=== PATIENT | female | born 1965 | race Caucasian/White ===

== ENCOUNTER 2018-10-04 23:04 | Emergency (ER) | payer SELFPAY ==
[~2018-10-04] VITALS: Ht 162.6 cm; Wt 106.1 kg
[2018-10-04 23:23] VITALS: BP 138/57
--- NOTE | 2018-10-04 23:33 | NUR ---
PT TAKEN TO BED 2
[2018-10-04] MEDS ORDERED: methylPREDNISolone SS 125 MG/2 ML VIAL IM ONE (23:40)
[2018-10-04] MEDS ORDERED: diphenhydrAMINE 50 MG/ML VIAL IM ONE (23:40)
--- NOTE | 2018-10-04 23:40 | NUR ---
52/f cc: allergic reaction. ichiness since 1300. hives on bue, abd and back. pressure sensation x1 h + nausea. denies hx.
[2018-10-04 23:55] VITALS: BP 147/68
--- NOTE | 2018-10-04 23:55 | NUR ---
DISCHARGE PAPERS GIVEN TO PT. PT STATES ITCHING AND ANXIETY REDUCED. 0/10 PAIN WITH VSS. RX OF BEADRYL AND PREDNISONE GIVEN. SIDE EFFECTS EXPLAINED. INSTRUCTED TO F/U WITH PCP AND WHEN TO RETURN TO ER. PT VERBALLIZED UNDERSTANDING OF DC INSTRUCTIONS. ALL QEUSTIONS ANSWERED.
== END 2018-10-04 23:55 | disposition home or self-care (01) ==
LOC: MED 23:04
DX: L23.9 Allergic contact dermatitis, unspecified cause (principal)
CPT/HCPCS: 96372; 99283; J1200; J2930

== ENCOUNTER 2018-10-06 23:31 | Emergency (ER) | payer MEDICAID ==
[~2018-10-06] VITALS: Ht 162.6 cm; Wt 105.2 kg
[2018-10-06 23:39] VITALS: BP 130/90
--- NOTE | 2018-10-06 23:39 | NUR ---
TO BED # 06 AMBULATORY
--- NOTE | 2018-10-06 23:40 | NUR ---
52 Y/O FEMALE PRESENTS TO ED, C/O RASH ON SKIN. PT STATES RASH STARTED ON THURSDAY, PT TOOK PREDNISONE AND BANOPHEN BUT MEDICATIONS INEFFECTIVE. RASHES APPEAR ON BILATERAL ARMS AND CHEST. PT HAS NO SOB. PT HAS NO MEDICAL HX. PT VSS. DR HEWITT AWARE. WILL CONTINUE TO MONITOR.
[2018-10-07] MEDS ORDERED: NACL 0.9% 1,000 ML IV ONE (00:12)
[2018-10-07] MEDS ORDERED: methylPREDNISolone SS 125 MG in WATER STERILE 2 ML IV ONE (00:15)
[2018-10-07] MEDS ORDERED: EPINEPHrine 1:1000 - 1 MG/ML AMP SUBQ ONE (00:15)
[2018-10-07] MEDS ORDERED: FAMOTIDINE 20 MG/2 ML VIAL IVP ONE (00:15)
[2018-10-07] MEDS ORDERED: diphenhydrAMINE 50 MG/ML VIAL IVP ONE (00:15)
[2018-10-07] MEDS ORDERED: methylPREDNISolone SS 125 MG/2 ML VIAL ONE (00:33)
--- NOTE | 2018-10-07 01:45 | NUR ---
PT AWAKE, LAYING ON BED. NO RASHES ON BODY. PT VSS. DR HEWITT AWARE. WILL CONTINUE TO MONITOR.
[2018-10-07 02:01] VITALS: BP 126/73
--- NOTE | 2018-10-07 02:01 | NUR ---
PT DISCHARGED WITH PAPERWORK. RX PEPCIC, EDUCATED PT REGARDING MEDICATION AND SIDE EFFECTS. EDUCATED PT REGARDING DISCHARGE DIAGNOSIS. PT VERBALIZED UNDERSTANDING OF TEACHING. TOLD PT TO FOLLOW UP WITH PCP AND WHEN TO RETURN TO ED. PT VSS. NO VISIBLE RASH ON BODY. ANSWERED ALL QUESTIONS.
== END 2018-10-07 02:01 | disposition home or self-care (01) ==
LOC: MED 23:31
DX: L50.0 Allergic urticaria (principal); Z88.0 Allergy status to penicillin
CPT/HCPCS: 96372; 96374; 96375; 99283; J0171; J1200; J2930; J3490; J7030

== ENCOUNTER 2023-06-24 20:44 | Emergency (ER) | payer SELFPAY ==
[~2023-06-24] VITALS: Ht 157.5 cm; Wt 100.8 kg
[2023-06-24 20:55] VITALS: BP 142/82; PULSE 71; RESP 18; TEMP 97.7; O2SAT 97
[2023-06-24 21:49] LABS: APPEARANCE,URINE SLIGHTLY HAZY (CLEAR); BILIRUBIN,URINE NEGATIVE (NEGATIVE); BLOOD, URINE NEGATIVE (NEGATIVE); COLOR,URINE YELLOW (YELLOW); LEUKOCYTE ESTERASE ,URINE 1+ (NEGATIVE); NITRITE, URINE NEGATIVE (NEGATIVE); PH,URINE 6.5 (5.0-9.0); PROTEIN,URINE NEGATIVE (NEGATIVE); UGLUCOSE NEGATIVE (NEGATIVE); UROBILINOGEN,URINE 0.2 EU/dL (0.2 - 1)
[2023-06-24 21:51] LABS: BACTERIA,URINE 1+ /HPF (None Seen); MUCUS,URINE None Seen /LPF (None Seen); RBC,URINE 0 /HPF (0-5); SQUAMOUS EPITHELIAL CELL,UR 0-3 (FEW) /LPF (0-3 (FEW)); WBC,URINE 0-5 /HPF (0-5)
[2023-06-24 22:21] LABS: BASOPHILS % (AUTO) 0.6 % (0.0-2.0); EOSINOPHILS # (AUTO) 0.2 K/uL (0-0.4); EOSINOPHILS % (AUTO) 3.4 % (0.0-4.0); HEMATOCRIT 41.3 % (36-48); LYMPHOCYTES # (AUTO) 1.4 K/uL (2.5-16.5); LYMPHOCYTES % (AUTO) 21.4 % (20.5-51.1); MEAN CORPUSCULAR HEMOGLOBIN 31 pg (27-31); MEAN CORPUSCULAR HGB CONC 34 g/dL (33-37); MONOCYTES # (AUTO) 0.6 K/uL (0.8-1.0); MONOCYTES % (AUTO) 8.2 % (1.7-9.3); NEUTROPHILS # (AUTO) 4.5 K/uL (1.8-7.7); NEUTROPHILS % (AUTO) 66.4 % (42.2-75.2); PLATELET COUNT (AUTO) 225 K/uL (140-450); RED BLOOD CELL COUNT(AUTO) 4.59 MIL/uL (4.20-5.40); RED CELL DISTRIBUTION WIDTH 12.8 % (11.6-13.7); WHITE BLOOD COUNT (AUTO) 6.8 K/uL (4.8-10.8)
[2023-06-24 22:34] LABS: ANION GAP 11.8 (8-16); CALCIUM 8.7 mg/dL (8.5-10.1); CARBON DIOXIDE 27.8 mmol/L (21-32); CREATININE 0.5 mg/dL (0.6-1.3); POTASSIUM 3.6 mmol/L (3.5-5.1)
[2023-06-24 22:42] LABS: ALBUMIN 3.8 g/dL (3.4-5.0); BILIRUBIN,DIRECT 0.1 mg/dL (0.0-0.3); TOTAL BILIRUBIN 0.3 mg/dL (0.0-1.0); TOTAL PROTEIN, SERUM 7.8 g/dL (6.4-8.2)
[2023-06-24] MEDS ORDERED: cefTRIAXone 1,000 MG VIAL ONE (22:44)
[2023-06-24] MEDS ORDERED: LIDOCAINE MPF 1% 5 ML ONE (22:45)
[2023-06-24] MEDS ORDERED: KETOROLAC 60 MG/2 ML VIAL IM ONE (22:45)
[2023-06-24] MEDS: KETOROLAC 60 MG/2 ML VIAL IM ONE (22:53)
[2023-06-24] MEDS: cefTRIAXone 1,000 MG in LIDOCAINE MPF 1% 2.1 ML IM ONE (22:54)
[2023-06-24] MEDS ORDERED: NAPR-337 PO (23:14)
[2023-06-24] MEDS ORDERED: CIPR500T4 PO (23:14)
[2023-06-24 23:19] VITALS: BP 139/82; PULSE 70; RESP 18; TEMP 98; O2SAT 97
== END 2023-06-24 23:18 | disposition home or self-care (01) ==
LOC: MED 20:44
DX: N39.0 Urinary tract infection, site not specified (principal); E78.5 Hyperlipidemia, unspecified; Z79.899 Other long term (current) drug therapy; Z88.0 Allergy status to penicillin
CPT/HCPCS: 36415; 80048; 80076; 81001; 83690; 85025; 87086; 96372; 99284; J0696; J1885; J2001